=== PATIENT | male | born 1975 | race Caucasian/White ===

== ENCOUNTER 2021-03-28 06:25 | Emergency (ER) | payer OTHER ==
[~2021-03-28] VITALS: Ht 175.3 cm; Wt 90.7 kg
[2021-03-28] MEDS ORDERED: WELLBUTRIN SR100 MG (06:33)
[2021-03-28] MEDS ORDERED: NEURONTIN300 MG (06:33)
[2021-03-28] MEDS ORDERED: ULTRACET (06:33)
== END 2021-03-28 17:10 | disposition home or self-care (01) ==
LOC: ER 06:25
DX: J02.9 Acute pharyngitis, unspecified (principal); R06.02 Shortness of breath